=== PATIENT | female | born 1955 | race Caucasian/White ===

== ENCOUNTER → 2019-07-26 | Outpatient (CLI) | payer OTHER | LOC: M.RAD 13:46 | DX: Z12.31 Encounter for screening mammogram for malignant neoplasm of breast (principal); R06.09 Other forms of dyspnea; I11.9 Hypertensive heart disease without heart failure ==

== ENCOUNTER → 2019-08-04 | Outpatient (CLI) | payer OTHER | LOC: M.RAD 08-01 13:38 | DX: N63.10 Unspecified lump in the right breast, unspecified quadrant (principal); R92.1 Mammographic calcification found on diagnostic imaging of breast ==

== ENCOUNTER → 2019-09-12 | Outpatient (CLI) | payer MEDICARE ==
--- NOTE | 2019-09-12 16:32 | EXE ---
[place] [address] STRESS ECHOCARDIOGRAM Name: LOANCHARAN A Room: [facility]#: [id number] Admission: 09/12/19 Attend Phys: Los Forte MD Discharge: Date of : 51 Date of Service: 09/12/19 1631 Report #: [id number] THIS REPORT FOR: //name// APPROVED REPORT Study performed: 09/12/2019 15:16:25 Exam: Stress Echocardiogram Indication: Chest pain , Dyspnea Patient Location: Out-Patient Stress Nurse: Cathy Rudolph RN Supervising Physician: Duncan Lopez MD Ht: 5 ft 6 in HR: 78 bpm BP: 144/78 mmHg Medical History Cardiac Risk Factors: HTN, Tobacco History (Former) Procedure The patient underwent an Exercise Stress Test using the Jesus Alberto Protocol. Blood pressure, heart rate, and EKG were monitored. An Echocardiogram was performed by patient services technician in four stages in quad fashion. At peak stress, four selected images were obtained and placed side by side with resting images for comparison. Stress Test Details Stress Test: Exercise stress testing was performed using a Jesus Alberto protocol. HR Resting HR: 78 bpm Max Heart Rate (APMHR): 155 bpm Max HR Achieved: 148 bpm Target HR (85% APMHR): 131 bpm % of APMHR: 95 Recovery HR: 98 bpm HR response to stress: Normal HR response to stress BP Resting BP: 144/78 mmHg Max BP: 258/90 mmHg Recovery BP: 170/89 mmHg ECG Resting ECG: Sinus Rhythm Stress ECG: Sinus Tachycardia ST Change: None Arrhythmia: [place] [address] STRESS ECHOCARDIOGRAM Name: CHARAN CATES Room: [facility]#: [id number] Admission: 09/12/19 Attend Phys: Los Forte MD Discharge: Date of : 51 Date of Service: 09/12/19 1631 Report #: [id number] Recovery ECG: Sinus Rhythm Recovery ST Change: None Recovery Arrhythmia: None Clinical Reason for Termination: Completed protocol Exercise duration: 5 min 16 sec Highest Stage Achieved: Stage 2: 2.5 mph at 12% grade. Exercise capacity: 7.05 METs The patient tolerated standard Jesus Alberto protocol exercise without significant cardiac symptoms. Stress ECG Conclusion The baseline 12-lead EKG showed sinus rhythm without significant ST segment or T wave abnormality. EKGs obtained during and post exercise showed sinus rhythm and sinus tachycardia with no significant ST segment changes when compared to baseline. There were no stress-induced arrhythmias. Pre-Stress Echo The resting Echocardiogram showed normal left ventricular contractility with an estimated Ejection Fraction of about 55-60%. The resting echocardiogram demonstrated normal wall motion in all wall segments. Post-Stress Echo The stress Echocardiogram showed normal left ventricular contractility with an estimated Ejection Fraction of about >70%. Compared to rest, there were no stress-induced wall motion abnormalities. Clinical No clinical or ECG evidence for ischemia. Conclusion Clinical Response: Non-ischemic Exercise Capacity: Average Stress ECG Response: Non-ischemic Stress Echo Images: Non-ischemic The left ventricle is normal in size and wall thickness in both the rest and stress images. Other Information Study Quality: Fair <Conclusion> [place] [address] STRESS ECHOCARDIOGRAM Name: CHARAN CATES Champ Room: [facility]#: [id number] Admission: 09/12/19 Attend Phys: Los Forte MD Discharge: Date of : 51 Date of Service: 09/12/191630 Report #: [id number] The left ventricle is normal in size and wall thickness in both the rest and stress images. <ELECTRONICALLY SIGNED> By: Duncan Lopez MD, FACC 09/12/191630 30 30 Duncan Lopez MD, FACC /INF
== END ==
LOC: M.CRD 14:37
DX: R07.89 Other chest pain (principal); R06.00 Dyspnea, unspecified; I10 Essential (primary) hypertension; Z87.891 Personal history of nicotine dependence

== ENCOUNTER → 2020-03-18 | Outpatient (CLI) | payer MEDICARE ==
[2020-03-18 09:32] LABS: ANION GAP 9 mmol/L (7-16); BUN 16 mg/dL (7-18); CALCIUM 8.4 mg/dL (8.5-10.1); CHLORIDE 104 mmol/L (98-107); CO2 26 mmol/L (21-32); GLUCOSE 131 mg/dL (70-99); SERUM ASSESSMENT Clear; SODIUM 139 mmol/L (136-145)
[2020-03-18 15:22] LABS: CHOLESTEROL 161 mg/dL (<200); HDL CHOLESTEROL 40 mg/dL (>40); LDL CHOLESTEROL 69 mg/dL (<100); TRIGLYCERIDE 262 mg/dL (<150); VLDL 52 mg/dL (<40)
== END ==
LOC: M.LAB 08:59
PROVIDERS: ATTEND Nurse Practitioner
DX: Z13.220 Encounter for screening for lipoid disorders (principal); I10 Essential (primary) hypertension

== ENCOUNTER → 2020-09-13 | Outpatient (CLI) | payer MEDICARE | LOC: M.ULTRA 09:12 | PROVIDERS: ATTEND Internal Medicine | DX: M85.861 Other specified disorders of bone density and structure, right lower leg (principal); K76.0 Fatty (change of) liver, not elsewhere classified; K80.20 Calculus of gallbladder without cholecystitis without obstruction ==